=== PATIENT | male | born 1980 | race Caucasian/White ===

== ENCOUNTER 2017-03-30 04:31 | Emergency (ER) | payer OTHER ==
[~2017-03-30] VITALS: Ht 167.6 cm; Wt 90.2 kg
[~2017-03-30 04:31] MED LIST: ANUCORT-HC25 MG PR; FLAGYL500 MG PO; PRILOSEC20 MG PO; ZYRTEC10 M2 PO
[2017-03-30 04:55] LABS: APPEARANCE CLEAR ((CLEAR)); BILIRUBIN NEGATIVE; BLOOD NEGATIVE; COLOR YELLOW ((YELLOW)); GLUCOSE (STRIP) NEGATIVE; KETONES NEGATIVE; LEUKOCYTES NEGATIVE; NITRITE NEGATIVE; PROTEIN (STRIP) 30; SPECIFIC GRAVITY 1.032 (1.000-1.030); UCUL ADDED? NO; UROBILINOGEN 0.2 MG/DL (0.2-1.0)
[2017-03-30 04:57] LABS: HEMATOCRIT 46.6 % (38.0-50.0); HEMOGLOBIN 15.8 G/DL (12.5-16.6); MCHC 33.9 G/DL (30.0-36.0); MCV 88.4 FL (86-99); PLATELET COUNT 241 K/uL (156-360); RBC DIS.WIDTH-CV 11.9 % (11.8-14.6); RED BLOOD COUNT 5.27 M/uL (4.00-5.50); WHITE BLOOD COUNT 7.5 K/uL (4.1-10.2)
[2017-03-30 05:23] LABS: ALBUMIN 4.6 g/dL (3.2-4.8); CHLORIDE 105 mEq/L (99-109); POTASSIUM 3.7 mEq/L (3.7-5.4); SODIUM 141 mEq/L (136-147)
[2017-03-30 05:25] LABS: GLUCOSE 115 mg/dL (70-99); TOTAL PROTEIN 7.6 g/dL (6.4-8.3)
[2017-03-30 05:27] LABS: TOTAL BILIRUBIN 0.8 mg/dL (0.0-1.0)
[2017-03-30 05:29] LABS: ALKALINE PHOSPHATASE 81 IU/L (3-129); CREATININE 1.2 mg/dL (0.6-1.3); GFR ESTIMATE (CALCULATED) > 59 mL/min/ (58.99-99999)
[2017-03-30 05:30] LABS: UREA NITROGEN (BUN) 26 mg/dL (9-23)
[2017-03-30 05:31] LABS: AST (GOT) 17 IU/L (2-34)
[2017-03-30 05:32] LABS: ALT (GPT) 30 IU/L (3-49); LIPASE 28 U/L (1.0-51.0)
[2017-03-30] MEDS ORDERED: ZOFRAN ODT4 MG PO (06:59)
[2017-03-30] MEDS ORDERED: LEVSIN0.125 MG PO (06:59)
[2017-03-30 07:20] VITALS: BP 121/85
== END 2017-03-30 07:21 | disposition home or self-care (01) ==
LOC: EME 04:31
DX: K52.9 Noninfective gastroenteritis and colitis, unspecified (principal); K21.9 Gastro-esophageal reflux disease without esophagitis; Z87.19 Personal history of other diseases of the digestive system; Z90.49 Acquired absence of other specified parts of digestive tract; Z88.8 Allergy status to other drugs, medicaments and biological substances
CPT/HCPCS: 74177; 80053; 81003; 83690; 85027; 99281; 99285; J2270; J2405; J7030